=== PATIENT | female | born 1955 | race Hispanic/Latino ===

== ENCOUNTER 2018-07-04 21:48 | Emergency (ER) | payer OTHER ==
[2018-07-04 23:41] LABS: BASO # 0.1 K/uL (0.0-0.2); BASO % 0.9 % (0.0-2.0); EOS # 0.1 K/uL (0.0-0.7); EOS % 0.7 % (0.0-4.0); HEMOGLOBIN 11.1 g/dL (12.0-16.0); LYMPH # 1.6 K/uL (1.0-4.3); MEAN CELL VOLUME 92.6 fl (81.0-99.0); MEAN CORPUSCULAR HEMOGLOBIN 30.8 pg (27.0-31.0); MEAN CORPUSCULAR HGB CONC 33.3 g/dL (33.0-37.0); MEAN PLATELET VOLUME 8.9 fl (7.2-11.7); MONO # 1.1 K/uL (0.0-0.8); MONO % 13.1 % (0.0-10.0); NEUT # 5.3 K/uL (1.8-7.0); NEUT % 65.3 % (50.0-75.0); NRBC % 0.1 % (0.0-0.0); RBC 3.61 Mil/uL (3.80-5.20); RED CELL DISTRIBUTION WIDTH 13.3 % (11.5-14.5); WHITE BLOOD COUNT 8.2 K/uL (4.8-10.8)
[2018-07-04 23:52] LABS: ALB/GLOB RATIO 1.2 (1.0-2.1); ALBUMIN 2.8 g/dL (3.5-5.0); ALT/SGPT 77 U/L (9-52); AST/SGOT 45 U/L (14-36); BLOOD UREA NITROGEN 17 mg/dl (7-17); CALCIUM 8.6 mg/dL (8.4-10.2); GFR NON-AFRICAN AMERICAN > 60
--- NOTE | 2018-07-05 02:16 | ED PDOC ---
HPI: Psych/Substance Abuse Chief Complaint (Provider): EDP Additional Complaint(s): Unknown-aged female brought in by EMS with police for evaluation. [place] Patient states her name is "Jhon" and that [place] Patient also asking for food but refusing to answer other questions. <Franny Alcala C - Last Filed: 07/05/18 04:56> <Jesus Duff Y - Last Filed: 07/05/18 05:11> Time Seen by Provider: 07/04/18 22:18 Chief Complaint (Nursing): Psychiatric Evaluation Past Medical History Reviewed: Historical Data, Nursing Documentation, Vital Signs - Family History Family History: States: No Known Family Hx <Franny Alcala - Last Filed: 07/05/18 04:56> <Jesus Duff - Last Filed: 07/05/18 05:11> - Allergies Allergies/Adverse Reactions: Allergies Allergy/AdvReac Type Severity Reaction Status Date / Time Unobtainable Allergy Verified 07/04/18 21:53 Review of Systems ROS Statement: Except As Marked, All Systems Reviewed And Found Negative <Franny Alcala - Last Filed: 07/05/18 04:56> Physical Exam - Reviewed Nursing Documentation Reviewed: Yes Vital Signs Reviewed: Yes - Physical Exam Appears: Positive for: Well, Non-toxic, Uncomfortable (agitated) Head Exam: Positive for: ATRAUMATIC, NORMAL INSPECTION, NORMOCEPHALIC Skin: Positive for: Normal Color Eye Exam: Positive for: Normal appearance ENT: Positive for: Normal ENT Inspection Cardiovascular/Chest: Positive for: Regular Rate, Rhythm Respiratory: Positive for: Normal Breath Sounds Gastrointestinal/Abdominal: Positive for: Normal Exam Back: Positive for: Normal Inspection Extremity: Positive for: Normal ROM Neurologic/Psych: Positive for: Alert, Oriented (x1) <Franny Alcala - Last Filed: 07/05/18 04:56> - Laboratory Results Result Diagrams: 07/04/18 23:30 07/04/18 23:30 - Progress ED Course And Treament: -accucheck -cbc -cmp -alcohol -urine drug screen -urinalysis -upreg -CT head Patient refusing to cooperate with ED staff; acutely agitated and speaking nonsensical sentences. Patient medicated for acute agitation/psychosis Patient placed on department chair CT head USArad impression: normal unenhanced CT scan of the brain 3:30 Patient sleeping; no distress. Vitals stable on monitor 5:00 Patient sleeping; no distress. Vitals stable on monitor <Franny Alcala - Last Filed: 07/05/18 04:56> - Laboratory Results Result Diagrams: 07/04/18 23:30 07/04/18 23:30 <Jesus Duff - Last Filed: 07/05/18 05:11> Medical Decision Making Medical Decision Makin Patient endorsed to me by RAJENDRA Blancas, pending crisis evaluation Scribe Attestation: Documented by Valerie Gonzalez, acting as a scribe for Jesus Duff MD. Provider Scribe Attestation: All medical record entries made by the Scribe were at my direction and personally dictated by me. I have reviewed the chart and agree that the record accurately reflects my personal performance of the history, physical exam, medical decision making, and the department course for this patient. I have also personally directed, reviewed, and agree with the discharge instructions and disposition. <Jesus Duff - Last Filed: 07/05/18 05:11> Disposition - Disposition Disposition Time: 05:00 Patient Signed Over To: Jesus Duff Handoff Comments: pending crisis eval <Franny Alcala - Last Filed: 07/05/18 04:56> <Jesus Duff - Last Filed: 07/05/18 05:11> - Clinical Impression Clinical Impression: Bizarre behavior - Disposition Condition: STABLE Forms: [facility] (Macedonian)
--- NOTE | 2018-07-05 07:14 | ED PDOC ---
- Laboratory Results Result Diagrams: 07/04/18 23:30 07/04/18 23:30 Medical Decision Making Medical Decision Makin Patient endorsed to me by Dr. Duff pending [facility] [place] screen. Scribe Attestation: Documented by Rob Rangle, acting as a scribe for Fabricio Cormier MD. Medically stable for psychiatric admission Provider Scribe Attestation: All medical record entries made by the Scribe were at my direction and personally dictated by me. I have reviewed the chart and agree that the record accurately reflects my personal performance of the history, physical exam, medical decision making, and the department course for this patient. I have also personally directed, reviewed, and agree with the discharge instructions and disposition. Disposition - Clinical Impression Clinical Impression: Bizarre behavior, UTI (urinary tract infection) - POA Present On Arrival: None - Disposition Disposition: Transfer of Care Disposition Time: 15:00 Condition: STABLE Forms: [facility] (Welsh) Patient Signed Over To: Yash Grullon
[2018-07-05 07:59] LABS: RENAL EPITHELIAL < 1 /hpf (0-3); SQUAMOUS EPITHIAL 3 /hpf (0-5); URINE BACTERIA RARE (<OCC); URINE BILIRUBIN NEGATIVE (NEGATIVE); URINE BLOOD SMALL (NEGATIVE); URINE CALCIUM OXALATE CRYSTALS RARE /hpf (<OCC); URINE CLARITY CLOUDY (Clear); URINE COLOR YELLOW (YELLOW); URINE GLUCOSE (UA) NEG (NEGATIVE); URINE HYALINE CAST 0-2 /hpf (0-2); URINE LEUKOCYTE ESTERASE LARGE Leu/uL (Negative); URINE PROTEIN NEGATIVE (NEGATIVE)
[2018-07-05 08:13] LABS: BARBITURATES, UR NEGATIVE (NEGATIVE); BENZODIAZEPINES, UR NEGATIVE (NEGATIVE); OPIATES, UR NEGATIVE (NEGATIVE); PHENCYCLIDINE, UR NEGATIVE (NEGATIVE)
[2018-07-05] MEDS ORDERED: Tmp-Smz 800 mg-160 mg DS Tab PO STA (09:15)
--- NOTE | 2018-07-05 09:44 | CT ---
Date of service: 07/05/2018 PROCEDURE: CT HEAD WITHOUT CONTRAST. HISTORY: Altered mental status COMPARISON: None available. TECHNIQUE: Axial computed tomography images were obtained through the head/brain without intravenous contrast. Radiation dose: Total exam DLP = 997.1 mGy-cm. This CT exam was performed using one or more of the following dose reduction techniques: Automated exposure control, adjustment of the mA and/or kV according to patient size, and/or use of iterative reconstruction technique. FINDINGS: HEMORRHAGE: No intracranial hemorrhage. BRAIN: There are mild chronic microangiopathic changes. There is no mass, mass effect or abnormal extra-axial fluid collection. There is no territorial infarction. The midline sagittal structures are normal. VENTRICLES: There is mild age-related global parenchymal volume loss and proportionate enlargement of the ventricles and cortical sulci. CALVARIUM: There is no calvarial fracture or extracranial soft tissue swelling. PARANASAL SINUSES: Predominantly clear. MASTOID AIR CELLS: Predominantly clear. OTHER FINDINGS: None. IMPRESSION: No acute intracranial abnormality. Mild chronic microangiopathic changes and mild age-related global parenchymal volume loss. A preliminary report was provided by [employer].
[2018-07-05] MEDS ORDERED: Tmp-Smz 800 mg-160 mg DS Tab ONE (09:55)
--- NOTE | 2018-07-05 12:17 | RAD ---
Date of service: 07/05/2018 HISTORY: Cough. COMPARISON: No prior. FINDINGS: LUNGS: No active pulmonary disease. PLEURA: No significant pleural effusion identified, no pneumothorax apparent. CARDIOVASCULAR: Atherosclerotic calcifications identified primarily aortic arch. No radiographic findings to suggest acute or significant cardiovascular disease. OSSEOUS STRUCTURES: No significant abnormalities. VISUALIZED UPPER ABDOMEN: Normal. OTHER FINDINGS: None. IMPRESSION: No active disease.
--- NOTE | 2018-07-05 15:29 | CP.PCM.CON ---
History of Present Illness - History of Present Illness History of Present Illness: face to face evaluation pt is 62 ys old female brought to ER by police due to disorganized behavior In the ER pt is floridly psychotic , refusing to be addressed by her name stating her name is Jhon , poor eye contact angry mood and irritable affect speech is under productive delusional thought process stating she is in contact with aliens , appears internally preoccupied and responding to internal stimuli, alert awake , oriented to person, poor insight and judgment Past Patient History - Past Social History Smoking Status: Unknown If Ever Smoked - CARDIAC Hx Cardiac Disorders: No Hx Hypertension: No - PULMONARY Hx Tuberculosis: No - NEUROLOGICAL HX Cerebrovascular Accident: No Hx Seizures: No - HEMATOLOGICAL/ONCOLOGICAL Hx Cancer: No Hx Human Immunodeficiency Virus (HIV): No - GENITOURINARY/GYNECOLOGICAL Hx Sexually Transmitted Disorders: No - PSYCHIATRIC Hx Substance Use: (unknown) Meds Allergies/Adverse Reactions: Allergies Allergy/AdvReac Type Severity Reaction Status Date / Time Unobtainable Allergy Verified 07/04/18 21:53 Results - Vital Signs Recent Vital Signs: Last Vital Signs Temp 98.4 F 07/05/18 01:04 Pulse 75 07/05/18 07:31 Resp 19 07/05/18 07:31 BP 99/59 L 07/05/18 07:31 Pulse Ox 96 07/05/18 07:31 - Labs Result Diagrams: 07/04/18 23:30 07/04/18 23:30 Labs: Laboratory Results - last 24 hr 07/04/18 07/04/18 07/05/18 23:30 23:30 07:20 WBC 8.2 RBC 3.61 L Hgb 11.1 L Hct 33.4 L MCV 92.6 MCH 30.8 MCHC 33.3 RDW 13.3 Plt Count 200 MPV 8.9 Neut % (Auto) 65.3 Lymph % (Auto) 20.0 Ceiba % (Auto) 13.1 H Eos % (Auto) 0.7 Baso % (Auto) 0.9 Neut # (Auto) 5.3 Lymph # (Auto) 1.6 Ceiba # (Auto) 1.1 H Eos # (Auto) 0.1 Baso # (Auto) 0.1 Sodium 136 Potassium 3.5 L Chloride 103 Carbon Dioxide 31 H Anion Gap 6 L BUN 17 Creatinine 0.7 Est GFR ( Amer) > 60 Est GFR (Non-Af Amer) > 60 Random Glucose 138 H Calcium 8.6 Total Bilirubin 0.2 AST 45 H ALT 77 H Alkaline Phosphatase 63 Total Protein 5.3 L Albumin 2.8 L Globulin 2.4 Albumin/Globulin Ratio 1.2 Urine Color Urine Clarity Urine pH Ur Specific Liberal Urine Protein Urine Glucose (UA) Urine Ketones Urine Blood Urine Nitrate Urine Bilirubin Urine Urobilinogen Ur Leukocyte Esterase Urine RBC (Auto) Urine Microscopic WBC Ur Squamous Epith Cells Ur Transition Epith Cell Ur Renal Epithelial Cell Calcium Oxalate Crystal Urine Bacteria Hyaline Casts Urine Opiates Screen Negative Urine Methadone Screen Negative Ur Barbiturates Screen Negative Ur Phencyclidine Scrn Negative Ur Amphetamines Screen Negative U Benzodiazepines Scrn Negative U Oth Cocaine Metabols Negative U Cannabinoids Screen Negative Alcohol, Quantitative < 10 07/05/18 07:20 WBC RBC Hgb Hct MCV MCH MCHC RDW Plt Count MPV Neut % (Auto) Lymph % (Auto) Ceiba % (Auto) Eos % (Auto) Baso % (Auto) Neut # (Auto) Lymph # (Auto) Ceiba # (Auto) Eos # (Auto) Baso # (Auto) Sodium Potassium Chloride Carbon Dioxide Anion Gap BUN Creatinine Est GFR ( Amer) Est GFR (Non-Af Amer) Random Glucose Calcium Total Bilirubin AST ALT Alkaline Phosphatase Total Protein Albumin Globulin Albumin/Globulin Ratio Urine Color Yellow Urine Clarity Cloudy Urine pH 6.0 Ur Specific Liberal 1.017 Urine Protein Negative Urine Glucose (UA) Neg Urine Ketones Negative Urine Blood Small Urine Nitrate Negative Urine Bilirubin Negative Urine Urobilinogen 2.0 H Ur Leukocyte Esterase Large Urine RBC (Auto) 42 H Urine Microscopic WBC 38 H Ur Squamous Epith Cells 3 Ur Transition Epith Cell 1 Ur Renal Epithelial Cell < 1 Calcium Oxalate Crystal Rare Urine Bacteria Rare Hyaline Casts 0-2 Urine Opiates Screen Urine Methadone Screen Ur Barbiturates Screen Ur Phencyclidine Scrn Ur Amphetamines Screen U Benzodiazepines Scrn U Oth Cocaine Metabols U Cannabinoids Screen Alcohol, Quantitative Assessment & Plan - Assessment and Plan (Free Text) Assessment: psychotic disorder rule out schizophrenia Plan: pt at current mental status floridly psychotic , internally preoccupied and delusional, refusing to be admitted to psychiatry unit and refusing medications at current mental status danger to self and others, screened for involuntary admission by [facility] [place] and awaiting bed
--- NOTE | 2018-07-05 15:51 | ED PDOC ---
- Laboratory Results Result Diagrams: 07/04/18 23:30 07/04/18 23:30 - ECG O2 Sat by Pulse Oximetry: 96 - Progress ED Course And Treament: 1551: Stable. Pending [facility] [place]. Took over care from Dr. Cormier. 1607: Ambulance coming to take pt. to [facility] [place] at 1730. Disposition - Clinical Impression Clinical Impression: Bizarre behavior, UTI (urinary tract infection) - POA Present On Arrival: None - Disposition Disposition: Other Institution Disposition Time: 16:08 Condition: STABLE
[2018-07-05 17:47] VITALS: BP 98/52; PULSE 94; RESP 16; TEMP 98; O2SAT 98
--- NOTE | 2018-07-05 23:42 | CARD ---
APPROVED REPORT Date of service: 07/05/2018 EKG Measurement Heart [id number] <Conclusion> Normal sinus rhythm Normal ECG
== END 2018-07-05 17:44 | disposition short-term general hospital (02) ==
LOC: EDSEX 21:48 → H.ER 21:48 → EDBD 21:48 → H.ER 07-05 17:44
DX: F91.8 Other conduct disorders (principal); Z00.8 Encounter for other general examination
CPT/HCPCS: 70450; 71045; 80053; 80320; 80324; 80345; 80346; 80349; 80353; 80358; 80361; 81003; 81025; 83992; 85025; 87086; 93005; 96372; 99285; J1630; J2060